=== PATIENT | male | born 1995 | race Caucasian/White ===

== ENCOUNTER 2017-05-26 17:02 | Emergency (ER) | payer SELFPAY ==
[2017-05-26 17:08] VITALS: BP 160/82
--- NOTE | 2017-05-26 19:26 | UC ---
London Comer Nikita, scribed for Aries Gaytan MD on 05/26/17 at 1720 . Head Injury HPI - HPI Summary HPI Summary: This patient is a 21 year old M presenting to [facility] with a chief complaint of jaw injury with pain at 1630. The patient was hit with a lacrosse ball in the jaw and is unsure if he was hit by a lacrosse stick as well while playing for [employer]. The patient rates the pain 8/10 in severity. Symptoms aggravated by nothing. Symptoms alleviated by nothing. Patient reports he is spitting up blood and is concerned about a jaw fracture because it is moving. The patient denies difficulty swallowing. - History Of Current Complaint Chief Complaint: UCTrauma Stated Complaint: JAW INJURY Time Seen by Provider: 05/26/17 17:09 Hx Obtained From: Patient Onset/Duration: Sudden Onset, Lasting Hours, Still Present Severity Currently: Moderate Severity Initially: Moderate Pain Intensity: 8 Pain Scale Used: 0-10 Numeric Aggravating Factor(s): Nothing Alleviating Factor(s): Nothing Associated Signs And Symptoms: Positive: Other - Patient reports he is spitting up blood and is concerned about a jaw fracture because it is moving. The patient denies difficulty swallowing. - Allergies/Home Medications Allergies/Adverse Reactions: Allergies Allergy/AdvReac Type Severity Reaction Status Date / Time azithromycin Allergy Unknown Verified 05/26/17 17:09 Reaction Details cefaclor [From Ceclor] Allergy Unknown Verified 05/26/17 17:09 Reaction Details Home Medications: Home Medications NK [No Home Medications Reported] 05/26/17 [History Confirmed 05/26/17] PMH/Surg Hx/FS Hx/Imm Hx Endocrine History: Other Other Endocrine History: No DM Cardiovascular History: Other Other Cardiovascular History: No CAD, HTN - Surgical History Surgical History: None - Family History Known Family History: Negative: Cardiac Disease, Hypertension, Diabetes - Social History Alcohol Use: Occasionally Substance Use Type: Marijuana Smoking Status (MU): Never Smoked Tobacco Review of Systems Constitutional: Other - denies fever ENT: Other - jaw injury with pain; denies difficulty swallowing All Other Systems Reviewed And Are Negative: Yes Physical Exam - Summary Physical Exam Summary: VITAL SIGNS: Reviewed. GENERAL: ~Patient is a well-developed and nourished MALE who is lying comfortable in the stretcher. ~Patient is not in any acute respiratory distress. HEAD AND FACE: Normocephalic EYES: PERRLA, EOMI x 2. EARS: Hearing grossly intact. MOUTH: Loose tooth in the L side of the jaw. Jaw is mobile. NECK: Supple, trachea is midline, no adenopathy, no JVD, no carotid bruit. CHEST: Symmetric, no tenderness at palpation LUNGS: Clear to auscultation bilaterally. No wheezing or crackles. CVS: Regular rate and rhythm, S1 and S2 present, no murmurs or gallops appreciated. ABDOMEN: Soft, non-tender. Bowel sounds are normal. No abdominal abnormal pulsations. EXTREMITIES: Full ROM in all major joints, no edema, no cyanosis or clubbing. NEURO: Alert and oriented x 3. No acute neurological deficits. Speech is normal and follows commands. SKIN: Dry and warm Triage Information Reviewed: Yes Vital Signs: Initial Vital Signs Temp 96.8 F 05/26/17 17:05 Pulse 81 05/26/17 17:05 Resp 18 05/26/17 17:05 BP 160/82 05/26/17 17:05 Pulse Ox 100 05/26/17 17:05 Vital Signs Reviewed: Yes Head Injury Course/Dx - Course Course Of Treatment: This patient is a 21 year old M presenting to [facility] with a chief complaint of jaw injury with pain at 1630 s/p being hit with a lacrosse ball. Because the jaw is mobile, we need to figure out if the jaw is fractured. Therefore, he will be sent to the ED for further assessment. The patient declines an ambulance. The pt is hemodynamically stable, alert and oriented x3. Plan of care was discussed with the patient, and patient understands and agrees. All questions were answered to patient satisfaction. There were no further complaints or concerns. - Differential Dx/Diagnosis Provider Diagnoses: facial trauma Discharge - Sign-Out/Discharge Documenting (check all that apply): Discharge - Discharge Plan Condition: Stable Disposition: HOME Patient Education Materials: Facial Contusion (ED) Referrals: [facility] [place] [place]] No Primary Care Phys,[facility] [Primary Care Provider] - Additional Instructions: Pateint will be discharged to the ED for further assessment. Declined Ambulance. The documentation as recorded by the London tang Nikita accurately reflects the service I personally performed and the decisions made by Lukas reeder Walter, MD.
== END 2017-05-26 17:19 | disposition home or self-care (01) ==
LOC: UCEAST 17:02
DX: S09.93XA Unspecified injury of face, initial encounter (principal); W21.09XA Struck by other hit or thrown ball, initial encounter; Y93.65 Activity, lacrosse and field hockey; Y92.39 Other specified sports and athletic area as the place of occurrence of the external cause; Z88.3 Allergy status to other anti-infective agents
CPT/HCPCS: 99202; G0463

== ENCOUNTER 2017-05-26 17:36 | Emergency (ER) | payer SELFPAY ==
--- NOTE | 2017-05-26 18:22 | RAD ---
INDICATION: Right shoulder injury. COMPARISON: There are no prior studies available for comparison. TECHNIQUE: Contiguous axial sections of the axial images of the facial bones were obtained and reconstructed in the coronal and sagittal planes. FINDINGS: There is soft tissue swelling adjacent to the anterior aspect of the mandible on the right side. There is a small amount of air within the adjacent soft tissues. There is a slightly comminuted nondisplaced fracture of the anterior aspect of the horizontal ramus of the mandible on the right side adjacent to its junction with the mandibular symphysis. The [place] of the orbits and maxillary sinuses appear intact. The zygomatic arches appear intact. The nasal bones appear intact. There is moderate deviation of the nasal septum toward the right side. The pterygoid plates appear intact. There is mild mucosal thickening within the inferior portions of both maxillary sinuses. The paranasal sinuses otherwise appear clear. IMPRESSION: SLIGHTLY COMMINUTED NONDISPLACED FRACTURE OF THE ANTERIOR ASPECT OF THE HORIZONTAL RAMUS OF THE MANDIBLE ON THE RIGHT SIDE ADJACENT TO ITS JUNCTION WITH THE MANDIBULAR SYMPHYSIS.
--- NOTE | 2017-05-26 18:33 | ED ---
Adult Trauma - HPI Summary HPI Summary: 21M presents with facial injury today. He was playing lacrosse when a lacrosse ball struck him in the right side of his jaw. He states that his jaw feels loose. He is unable to open his jaw on the way. He admits to loose teeth. He states his teeth continues to ooze blood in the area where the pain is. He denies any sore throat. He denies any nasal injury. He denies any loss consciousness. He denies any headache. He denies any chest pain or SOB. He denies any difficulty swallowing. - History of Current Complaint Chief Complaint: EDFacialInjury Stated Complaint: JAW INJURY Time Seen by Provider: 05/26/17 17:41 Pain Intensity: 8 - Allergy/Home Medications Allergies/Adverse Reactions: Allergies Allergy/AdvReac Type Severity Reaction Status Date / Time azithromycin Allergy Unknown Verified 05/26/17 17:47 Reaction Details cefaclor [From Ceclor] Allergy Unknown Verified 05/26/17 17:47 Reaction Details PMH/Surg Hx/FS Hx/Imm Hx Endocrine/Hematology History: Denies: Hx Anticoagulant Therapy Cardiovascular History: Denies: Hx Myocardial Infarction Infectious Disease History: No Infectious Disease History: Denies: Traveled Outside the [place] in Last 30 Days - Family History Known Family History: Negative: Hypertension - Social History Alcohol Use: Occasionally Substance Use Type: Reports: Marijuana Smoking Status (MU): Never Smoked Tobacco Review of Systems Negative: Fever Positive: Other - right jaw pain Negative: Chest Pain Negative: Shortness Of Breath All Other Systems Reviewed And Are Negative: Yes Physical Exam Triage Information Reviewed: Yes Vital Signs On Initial Exam: Initial Vitals Temp Pulse Resp BP Pulse Ox 98.1 F 68 18 174/93 100 05/26/17 17:38 05/26/17 17:38 05/26/17 17:38 05/26/17 17:38 05/26/17 17:38 Vital Signs Reviewed: Yes Appearance: Positive: Well-Appearing Skin: Positive: Warm, Dry, Other - edema to right jaw Head/Face: Positive: Normal Head/Face Inspection Eyes: Positive: Normal, EOMI, DARIAN, Conjunctiva Clear ENT: Positive: Pharynx normal, TMs normal, Other - unable to open jaw all the way Neck: Positive: Other: - nontender neck Respiratory/Lung Sounds: Positive: Clear to Auscultation, Breath Sounds Present Cardiovascular: Positive: Normal, RRR Musculoskeletal: Positive: Normal Neurological: Positive: Sensory/Motor Intact, Alert, Oriented to Person Place, Time, CN Intact II-III Psychiatric: Positive: Normal Diagnostics - Vital Signs Vital Signs Temp Pulse Resp BP Pulse Ox 05/26/17 17:38 98.1 F 68 18 174/93 100 - Laboratory Lab Statement: Any lab studies that have been ordered have been reviewed, and results considered in the medical decision making process. - CT mandibular CT Interpretation: Positive (See Comments) - IMPRESSION: SLIGHTLY COMMINUTED NONDISPLACED FRACTURE OF THE ANTERIOR ASPECT OF THE HORIZONTAL RAMUS OF THE MANDIBLE ON THE RIGHT SIDE ADJACENT TO ITS JUNCTION WITH THE MANDIBULAR SYMPHYSIS. CT Interpretation Completed By: Radiologist Adult Trauma Course/Dx - Course Course Of Treatment: 21M presents with facial injury today. He was playing lacrosse when a lacrosse ball struck him in the right side of his jaw. He states that his jaw feels loose. He is unable to open his jaw on the way. He admits to loose teeth. He states his teeth continues to ooze blood in the area where the pain is. He denies any sore throat. He denies any nasal injury. He denies any loss consciousness. He denies any headache. He denies any chest pain or SOB. He denies any difficulty swallowing. on exam has tenderness right lower jaw with edema, in mouth has loose teeth with bleeding. CT shows mandibular fracture. discussed with dr an [facility] discussed with Julio [facility] said can't arrange outpatient but can be seen. patient discussed with physician and got a hold of dr blackwood who got follow up in [place] tomorrow. will prescribe pain meds and augmentin. patient understand and agrees with plan. - Diagnoses Differential Diagnosis/HQI/PQRI: Positive: Contusion(s), Fracture, Dislocation Provider Diagnoses: Mandibular fracture Discharge - Sign-Out/Discharge Documenting (check all that apply): Discharge - Discharge Plan Condition: Good Disposition: HOME Prescriptions: Amoxicillin/Clavulanate TAB* [Augmentin TAB 875*] 875 mg PO BID #19 tab oxyCODONE/Acetamin 5/325 MG* [Percocet 5/325 TAB*] 1 tab PO Q6H PRN #20 tab MDD 4 PRN Reason: Pain Patient Education Materials: Facial Fracture (ED) Referrals: [facility] [Primary Care Provider] - Additional Instructions: Placed ice on area Take ibuprofen every 6 hours and use naroctic for break through pain every 6 hours take antibiotic twice a day for 10 days Una will call you tomorrow with an appointment eat only soft foods return to ED if develop any new or worsening symptoms - Billing Disposition and Condition Condition: GOOD Disposition: HOME
[2017-05-26] MEDS ORDERED: Clindamycin 600 MG IVPREMIX(* 600 MG/50 ML SDV IV ONE (18:34)
[2017-05-26] MEDS ORDERED: Morphine INJ* 4 MG/ML 1 ML SYRINGE (NEW SYRINGE VERSION) IV ONE (18:34)
[2017-05-26] MEDS ORDERED: Morphine VIAL* 4 MG/ML VIAL (1 ml vial) IV ONE (19:30)
[2017-05-26 20:16] VITALS: BP 142/90
== END 2017-05-26 20:15 | disposition home or self-care (01) ==
LOC: ED 17:36
DX: S02.641A Fracture of ramus of right mandible, initial encounter for closed fracture (principal); W21.09XA Struck by other hit or thrown ball, initial encounter; Y93.65 Activity, lacrosse and field hockey; Y92.9 Unspecified place or not applicable
CPT/HCPCS: 70486; 96374; 96375; 96376; 99282; J2270

== ENCOUNTER 2017-10-13 02:26 | Emergency (ER) | payer OTHER ==
--- NOTE | 2017-10-13 05:00 | ED ---
Laceration/Wound HPI - HPI Summary HPI Summary: A 22 y/o M presents to ED with lac on his 4th finger of L hand onset [employer]. Pt was moving a table when he cut his finger. - History of Current Complaint Stated Complaint: LEFT FINGER LAC Time Seen by Provider: 10/13/17 02:45 Hx Obtained From: Patient Mechanism of Injury: Sharp/Blunt Trauma Onset/Duration: Sudden Onset, Lasting Hours, Still Present Onset Severity: Moderate Current Severity: Moderate Pain Intensity: 7 Pain Scale Used: 0-10 Numeric - Allergy/Home Medications Allergies/Adverse Reactions: Allergies Allergy/AdvReac Type Severity Reaction Status Date / Time azithromycin Allergy Unknown Verified 05/26/17 17:47 Reaction Details cefaclor [From Ceclor] Allergy Unknown Verified 05/26/17 17:47 Reaction Details PMH/Surg Hx/FS Hx/Imm Hx Previously Healthy: Yes Endocrine/Hematology History: Denies: Hx Anticoagulant Therapy Cardiovascular History: Denies: Hx Myocardial Infarction Infectious Disease History: No Infectious Disease History: Denies: Traveled Outside the [place] in Last 30 Days - Family History Known Family History: Negative: Hypertension - Social History Occupation: Student Lives: With Family Alcohol Use: Occasionally Substance Use Type: Reports: Marijuana Smoking Status (MU): Never Smoked Tobacco Review of Systems Negative: Fever Positive: Other - lac to 4th digit on L hand All Other Systems Reviewed And Are Negative: Yes Physical Exam - Summary Physical Exam Summary: VITAL SIGNS: Reviewed. GENERAL: Patient is a well-developed and nourished MALE who is lying comfortable in the stretcher. Patient is not in any acute respiratory distress. HEAD AND FACE: No signs of trauma. No ecchymosis, hematomas or skull depressions. No sinus tenderness. EYES: PERRLA, EOMI x 2, No injected conjunctiva, no nystagmus. EARS: Hearing grossly intact. Ear canals and tympanic membranes are within normal limits. MOUTH: Oropharynx within normal limits. NECK: Supple, trachea is midline, no adenopathy, no JVD, no carotid bruit, no c- spine tenderness, neck with full ROM. CHEST: Symmetric, no tenderness at palpation LUNGS: Clear to auscultation bilaterally. No wheezing or crackles. CVS: Regular rate and rhythm, S1 and S2 present, no murmurs or gallops appreciated. ABDOMEN: Soft, non-tender. No signs of distention. No rebound no guarding, and no masses palpated. Bowel sounds are normal. EXTREMITIES: FROM in all major joints, no edema, no cyanosis or clubbing. NEURO: Alert and oriented x 3. No acute neurological deficits. Speech is normal and follows commands. SKIN: Dry and warm. Lac at tip of L 4th finger, approx 2cm with free flap. Triage Information Reviewed: Yes Vital Signs On Initial Exam: Initial Vitals Temp Pulse Resp BP Pulse Ox 98.5 F 91 20 147/88 96 10/13/17 02:10/13/17 02:10/13/17 02:10/13/17 02:10/13/17 02:29 Vital Signs Reviewed: Yes Procedures - Laceration/Wound Repair 1 Location: Other - L hand, 4th digit Description: Linear Anesthesia: Digital, 1.0%, Lido Irrigated w/ Saline (ccs): 200 - ccs Closure: Single Layer Suture Type: Nylon - 5-0 Number of Sutures: 6 Diagnostics - Vital Signs Vital Signs Temp Pulse Resp BP Pulse Ox 10/13/17 02:29 98.5 F 91 20 147/88 96 - Laboratory Lab Statement: Any lab studies that have been ordered have been reviewed, and results considered in the medical decision making process. Laceration Repair Course/Dx - Course Course Of Treatment: A 22 y/o M presents with lac on his 4th finger of L hand from moving a table. Lac repair: 6 stitches, nylon 5-0. - Clinical Impression Provider Diagnoses: Laceration of finger of left hand Discharge - Sign-Out/Discharge Documenting (check all that apply): Patient Departure - DC - Discharge Plan Condition: Stable Disposition: HOME Patient Education Materials: Care For Your Stitches (ED), Finger Laceration (ED ) Referrals: No Primary Care Phys,[facility] [Primary Care Provider] - [facility] [place] [facility] [Outside] Additional Instructions: RETURN TO THE EMERGENCY DEPARTMENT FOR CHANGING OR WORSENING SYMPTOMS. Have the sutures removed in 10 days at your primary care provider, Urgent Care, or the Emergency Department. - Billing Disposition and Condition Condition: STABLE Disposition: Home - Attestation Statements Document Initiated by Scribe: Yes Documenting Scribe: Summer Delgado Provider For Whom Scribe is Documenting (Include Credential): Dr. Randall Barkley MD Scribe Attestation: I, Summer Delgado, scribed for Dr. Randall Barkley MD on 10/16/17 at 0536. Scribe Documentation Reviewed: Yes Provider Attestation: The documentation as recorded by the scribe, Summer Delgado accurately reflects the service I personally performed and the decisions made by me, Dr. Randall Barkley MD
[2017-10-13 06:58] VITALS: BP 127/65
== END 2017-10-13 06:57 | disposition home or self-care (01) ==
LOC: ED 02:26
DX: S61.215A Laceration without foreign body of left ring finger without damage to nail, initial encounter (principal); W45.8XXA Other foreign body or object entering through skin, initial encounter; Y92.9 Unspecified place or not applicable
CPT/HCPCS: 12001; 99282